=== PATIENT | female | born 1990 | race Caucasian/White ===

== ENCOUNTER 2023-08-07 07:54 | Inpatient (IN) ==
[2023-08-07] MEDS ORDERED: LIDOCAINE 1% LOCAL 20 ML VIAL INFIL PRN (08:14)
[2023-08-07] MEDS ORDERED: LACTATED RINGER'S 1,000 ML IV PRN (08:14)
[2023-08-07] MEDS ORDERED: OXYTOCIN 30 UNITS/NSS 30 UNITS/500 ML BAG IV PRN ×2 (08:14)
[2023-08-07 08:54] LABS: Hematocrit (blood only) 35.6 % (37.0-47.0); Hemoglobin 11.8 g/dl (12.0-16.0); Mean Corpuscular Hemoglobin 29.3 pg (25.0-34.0); Mean Corpuscular Hgb Conc 33.1 g/dL (32.0-36.0); Mean Corpuscular Volume 88.3 fL (80.0-100.0); Mean Platelet Volume 11.9 fL (9.4-12.4); Platelet Count 150 K/uL (130-400); RDW Standard Deviation 44.5 fL (36.4-46.3); Red Blood Count 4.03 M/uL (4.20-5.40); White Blood Count 7.32 K/ul (4.8-10.8)
--- NOTE | 2023-08-07 09:26 | History & Physical Report ---
Date of Service August 07, 2023 Assessment & Plan (1) Encounter for supervision of normal in multigravida: Plan: 32 yo at 40 5/7 wga presents for IOL VSS Fetus cat 1 Labor - will start pit GBS neg epidural prn Admission and Anticipated Discharge Date Admission Date: August 07, 2023 History of Present Illness Chief Complaint: IOL Primary Care Provider: Jennifer Boss MD 32 yo at 40 5/7 wga presents for IOL. +FM; denies regular ctx, LOF, VB. Tez fell out around 4am PNI: PCOS CF carrier hypothyroid G1 2021 G2 current denies hx stis Allergies Allergy/AdvReac Type Severity Reaction Status Date / Time No Known Allergies Allergy Verified 08/06/23 19:31 Home Medications Medication Instructions Recorded Confirmed Type prenat.vits,vandana,alo-cjcv-kkfas 1 tab PO DAILY 12/14/22 08/07/23 History citalopram 20 mg tablet 20 mg PO DAILY #30 tabs 06/13/23 08/07/23 Rx levothyroxine 25 mcg tablet 25 mcg PO DAILY #90 tabs 07/07/23 08/07/23 Rx Patient History Medical History History of chicken pox Family history of melanoma PCOS (polycystic ovarian syndrome) Anxiety Surgical History S/P wisdom tooth extraction H/O colposcopy with cervical biopsy Family History Denies family history of Ovarian cancer Prostate cancer Myocardial infarction Breast cancer Colorectal cancer Social History (Updated 08/07/23 @ 08:17 by Rosy Jurado RN) Smoking Status: Never smoker Second Hand Exposure: No; Do You Dip or Chew Tobacco: No; Hx Alcohol Use: No Hx Substance Use: No Preferred Language: Lithuanian Communication Ability: Effective Floor Representative Required: No Beliefs That Will Affect Care: None marital status: marital status details: Ismael Hurleyhal (32) [phone] Current Living Situation: Family Current Living Situation Comment: Lives at home with , and one daughte. current occupational status: employed current occupation: [employer] director How many Children do You have: 1 Other Information That Helps Us Care for You: No Feels Safe at Home: Yes Safety Concerns: Feels Safe At This Time Childhood Exposure to Second-Hand Smoke: Yes Diet: regular caffeine: Yes Dental Care, Regularly: Yes Seatbelt Use: always Sunscreen Use: Yes Physical Exam Genitourinary: OB Exam Abdomen: + vertex and + estimated weight (7-8) Manual OB Exam: + cervical dilation (3-4), + cervical effacement 50% and + station -2 OB Exam Monitor Tracing: + external FHT monitor used, + external uterine monitor used and + category I Results & Data Vital Signs (Past 12 Hours) Vital Signs Temp Pulse Resp BP 08/07/23 09:07 88 128/86 08/07/23 08:22 97.7 F 108 H 18 123/84 08/07/23 08:13 108 H 18 123/84 Laboratory Results OB Labs: Blood Type B Positive 12/23/22 Antibody Screen NEGATIVE 12/23/22 Hemoglobin 12.4 g/dl (12.0-16.0) 05/11/23 Hematocrit 36.9 % (37.0-47.0) L 05/11/23 Mean Corpuscular Volume 84.8 fL (80.0-100.0) 12/23/22 Platelet Count 228 K/uL (130-400) 12/23/22 Rubella IgG Antibody Immune (Immune) 12/23/22 Rapid Plasma Reagin Nonreactive (Nonreactive) 12/23/22 Hepatitis B Surface Antigen. NON-REACTIVE (NON-REACTIVE) 12/23/22 Hepatitis C Antibody (EIA) NON-REACTIVE (NON-REACTIVE) 12/23/22 HIV (1&2) Ag and Ab Confirmation NON-REACTIVE (NON-REACTIVE) 12/23/22 Glucose 1 Hour 50 gm Load 95 mg/dl (70-130) 05/11/23 Maternal Serum Alpha Fetoprotein 26.8 ng/mL 02/20/23 OB Optional Labs: Chlamydia trachomatis RNA Not Detected (NotDetected) 12/23/22 Neisseria gonorrhoeae RNA Not Detected (NotDetected) 12/23/22 Thyroid Stimulating Hormone (TSH) 1.021 uIu/ml (0.300-4.500) 07/13/23 Alpha Fetoprotein Triple Screen SEE NOTE 02/20/23 Labs Reviewed: cfdna-low risk--mln neg afp - sln Coding Level of Care Code None Diagnoses Encounter for supervision of normal in multigravida Z34.80
--- NOTE | 2023-08-07 12:36 | Labor Progress Brief Note ---
Date of Service August 07, 2023 Subjective Tolerating ctx well, declines epidural prior to AROM. Assessment & Plan (1) Post term over 40 weeks: Plan Continue pitocin, s/p AROM, epidural on request. Anticipate . Admission and Anticipated Discharge Date Admission Date: August 07, 2023 Physical Exam Genitourinary: /-2 AROM copious clear FHT Cat 1 [place] not well traced d/t patient position but appears Q4, which is c/w patient noting ctx Results & Data Vital Signs (Past 12 Hours) Vital Signs Temp Pulse Resp BP 08/07/23 12:20 87 122/78 08/07/23 11:23 80 08/07/23 11:23 98.2 F 80 18 129/81 08/07/23 10:24 85 113/78 08/07/23 09:07 88 128/86 08/07/23 08:22 97.7 F 108 H 18 123/84 08/07/23 08:13 108 H 18 123/84 Coding Level of Care Code None Diagnoses Post term over 40 weeks O48.0
[2023-08-07] MEDS ORDERED: fentaNYL citrate PF 100 MCG/2 ML VIAL ONE (13:01)
[2023-08-07] MEDS ORDERED: BUPIVACAINE 0.25% PF 30 ML VIAL ONE (13:02)
[2023-08-07] MEDS ORDERED: ePHEDrine sulfate 50 MG/ML AMP ONE (13:02)
[2023-08-07] MEDS ORDERED: fentANYL 2 MCG/ML BUPIVacaine 0.125%-NSS 100ML BAG ONE (13:02)
[2023-08-07] MEDS ORDERED: SODIUM CHLORIDE 0.9% PF INJ 10 ML VIAL ONE (13:02)
[2023-08-07] MEDS ORDERED: LIDOCAINE 2%/EPINEPHRINE 1:200,000 20 ML PF ONE (13:02)
[2023-08-07] MEDS ORDERED: BUPIVACAINE 0.25% PF 30 ML VIAL EPI PRN (13:44)
[2023-08-07] MEDS ORDERED: NALBUPHINE HCL 5 MG in SYRINGE 0 ML IV PRN (13:44)
[2023-08-07] MEDS ORDERED: ePHEDrine sulfate 50 MG/ML AMP IV PRN (13:44)
[2023-08-07] MEDS ORDERED: LIDOCAINE 2%/EPINEPHRINE 1:200,000 20 ML PF EPI STA (13:44)
[2023-08-07] MEDS ORDERED: NALOXONE HCL 1 MG in SODIUM CHLORIDE 0.9% 1,000 ML IV PRN (13:44)
[2023-08-07] MEDS ORDERED: SODIUM CHLORIDE 0.9% PF INJ 10 ML VIAL EPI PRN (13:44)
[2023-08-07] MEDS ORDERED: fentANYL 2 MCG/ML BUPIVacaine 0.125%-NSS 100ML BAG EPI PRN (13:44)
[2023-08-07] MEDS ORDERED: diphenhydrAMINE 50 MG/ML VIAL IV PRN (13:44)
[2023-08-07] MEDS ORDERED: fentaNYL citrate PF 100 MCG/2 ML VIAL EPI STA (13:44)
[2023-08-07] MEDS ORDERED: LIDOCAINE 2% MPF LOCAL 5 ML VIAL EPI PRN (13:44)
[2023-08-07] MEDS ORDERED: NALOXONE HCL 0.4 MG/1 ML VIAL/CARP IV PRN (13:44)
[2023-08-07] MEDS ORDERED: SODIUM CHLORIDE 0.9% PF INJ 10 ML VIAL EPI STA (13:44)
[2023-08-07] MEDS ORDERED: fentaNYL citrate PF 100 MCG/2 ML VIAL EPI PRN (13:44)
[2023-08-07] MEDS ORDERED: ROPIVACAINE 0.5% PF 5 MG/ML 20 ML VIAL EPI PRN (13:44)
[2023-08-07] MEDS ORDERED: BUPIVACAINE 0.25% PF 30 ML VIAL EPI STA (13:44)
--- NOTE | 2023-08-07 13:45 | Anesthesiology Consultation ---
Date of Service August 07, 2023 Assessment & Plan Chart Review Chart Review: Acceptable Risk for Labor Epidural Consults Requested none History Height/Weight Height: 5 ft 9 in Weight: 113.398 kg Allergies Allergy/AdvReac Type Severity Reaction Status Date / Time No Known Allergies Allergy Verified 08/06/23 19:31 Medications Home Medications Medication Instructions Recorded Confirmed Last Taken prenat.vits,vandana,rpr-fcmv-sasld 1 tab PO DAILY 12/14/22 08/07/23 08/07/23 citalopram 20 mg tablet 20 mg PO DAILY #30 tabs 06/13/23 08/07/23 08/07/23 levothyroxine 25 mcg tablet 25 mcg PO DAILY #90 tabs 07/07/23 08/07/23 08/07/23 Active Medications Generic Name Dose Route Start Last Admin Trade Name Freq PRN Reason Stop Dose Admin Oxytocin 30 units in 500 mls @ 10 mls/hr 08/07/23 08:14 08/07/23 11:20 Pitocin 30 Units/Nss IV 08/09/23 08:13 0.6 units/hr .Q24H PRN 10 mls/hr Labor Induction/Augmentation Titration Protocol 0.6 UNITS/HR Lactated Ringer's 1,000 mls @ 125 mls/hr 08/07/23 08:14 08/07/23 08:28 Lr IV 08/09/23 08:13 125 mls/hr .Q8H PRN Administration L&D Protocol Protocol Past Medical History Medical History History of chicken pox Family history of melanoma PCOS (polycystic ovarian syndrome) Anxiety Past Family History Family History Denies family history of Ovarian cancer Prostate cancer Myocardial infarction Breast cancer Colorectal cancer Past Surgical History Surgical History S/P wisdom tooth extraction H/O colposcopy with cervical biopsy Social History Smoking Status: Never smoker Do You Dip or Chew Tobacco: No Hx Alcohol Use: No Alcohol type: wine alcohol intake frequency: a few times a month Hx Substance Use: No Physical Exam Vital Signs Last Vital Signs Temp 36.8 C 08/07/23 11:23 Pulse 87 08/07/23 12:20 Resp 18 08/07/23 11:23 BP 122/78 08/07/23 12:20 Testing Laboratory Results 08/07/23 08:33 Blood Type B Positive 08/07/23 08:33 Antibody Screen NEGATIVE 08/07/23 08:33
--- NOTE | 2023-08-07 18:06 | Delivery Summary ---
Vaginal Delivery Summary Date of Service August 07, 2023 Vaginal Delivery Summary DIAGNOSES: 1. Mejia intrauterine at 40w5d gestation. 2. Spontaneous onset of labor. 3. Group B Streptococcus Neg. PROCEDURE: Spontaneous vaginal delivery and repair of second degree laceration. SURGEON: Alesha Salinas MD. ABSTRACT MAKER: None. ESTIMATED BLOOD LOSS: 300 mL. COMPLICATIONS: None. PLACENTA: Spontaneous and intact with a 3-vessel cord. DISPOSITION: Stable to labor and delivery. DESCRIPTION: The patient pushed well and brought the head to in DOA position. The infant's head was allowed to deliver with contraction force and no further active pushing, with the perineum protected during this time. There was no nuchal cord. The left shoulder was anterior. The shoulders and body delivered without any difficulty, and the infant was placed on the maternal abdomen. It was vigorous and moving all extremities, and making respiratory efforts. The cord was doubly clamped by the MD and then cut by the FOB. The placenta delivered spontaneously and was noted to be intact and with a 3VC. The cervix, vagina and perineum were examined and were found to have a second degree laceration which was repaired with 3-0 vicryl suture.. The fundus was firm and lochia minimal immediately after delivery. [facility] Vaginal Delivery Charge Vaginal Delivery Codes: 63401 global code for the antepartum, delivery, and post-
[2023-08-07] MEDS ORDERED: HYDROCORTISONE ACETATE 25 MG SUPP PR PRN (19:02)
[2023-08-07] MEDS ORDERED: bisacodyL 10 MG SUPP PR PRN (19:02)
[2023-08-07] MEDS ORDERED: BENZOCAINE 20% SPRY 85 APPLN/85 GM CAN EXT PRN (19:02)
[2023-08-07] MEDS ORDERED: DIPHTHER/TETAN/PERTUS Vaccine (Tdap, Adol/Adult) 0.5mL IM ONE (19:02)
[2023-08-07] MEDS ORDERED: DOCUSATE SODIUM 100 MG CAP PO ONE (19:12)
[2023-08-07] MEDS: IBUPROFEN 600 MG TAB PO PRN ×2 (19:13→23:11)
--- NOTE | 2023-08-07 19:29 | Anesthesia Procedure Note ---
Date of Service August 07, 2023 Anesthesia Post Epidural Note Vital Signs Vital Signs: Temp Pulse Resp BP Pulse Ox O2 Del Method 36.5 C 81 18 117/73 99 Room Air 08/07/23 19:00 08/07/23 19:16 08/07/23 19:00 08/07/23 19:16 08/07/23 18:00 08/07/23 19:00 Pain Intensity Bilateral Abdomen: Pain Intensity: 4 Notes Mental Status: alert / awake / arousable and participated in evaluation Nausea / Vomiting: adequately controlled Pain: adequately controlled Airway Patency, RR, SpO2: stable & adequate BP & HR: stable & adequate Hydration State: stable & adequate Neuraxial Anesthesia: was administered and sensory block is resolving Anesthetic Complications: no major complications apparent and Pt Satisfied with anesthetic care Epidural: Removed without complications and With tip intact
[2023-08-07] MEDS: DOCUSATE SODIUM 100 MG CAP PO SCH (20:42)
[2023-08-07] MEDS: ACETAMINOPHEN 325 MG TAB PO PRN (21:05)
[2023-08-08] MEDS: IBUPROFEN 600 MG TAB PO PRN ×5 (03:11→20:28)
[2023-08-08] MEDS: ACETAMINOPHEN 325 MG TAB PO PRN (03:11)
[2023-08-08] MEDS: LEVOTHYROXINE SODIUM 25 MCG TABLET PO SCH (06:51)
[2023-08-08 07:15] LABS: Hemoglobin 11.4 g/dl (12.0-16.0); Mean Corpuscular Hemoglobin 29.4 pg (25.0-34.0); Mean Corpuscular Hgb Conc 33.5 g/dL (32.0-36.0); Mean Corpuscular Volume 87.6 fL (80.0-100.0); Mean Platelet Volume 12.4 fL (9.4-12.4); Platelet Count 142 K/uL (130-400); RDW Coefficient of Variation 14.1 % (11.5-14.5); RDW Standard Deviation 44.5 fL (36.4-46.3); Red Blood Count 3.88 M/uL (4.20-5.40); White Blood Count 7.24 K/ul (4.8-10.8)
--- NOTE | 2023-08-08 07:17 | Obstetrical Progress Note ---
Date of Service <Nicole Sanches DO - Last Filed: 08/08/23 07:24> August 08, 2023 Assessment & Plan <Nicole Sanches DO - Last Filed: 08/08/23 07:24> (1) care following vaginal delivery: Plan Overall feels well today. Eating well, voiding well, ambulating well. Pain controlled with ibuprofen and tylenol but has worsened some with crampy pain, so may use some percocet today to see if it helps. Routine care; OOB, ambulation, Continue regular diet. Anticipate discharge 24-48 hours after , likely tomorrow am. After discharge will have 6 week follow-up with Dr. Salinas. <Alesha Salinas MD - Last Filed: 08/08/23 07:27> (1) care following vaginal delivery: Subjective <Nicole Sanches DO - Last Filed: 08/08/23 07:24> Pt is a 32 y/o female who is PPD#1 following at 40 weeks. Pt states that she is overall feeling well this morning, but states she definitely is more crampy this time compared to her last delivery. She has been ambulating, voiding, and tolerating intake appropriately. She is breast feeding and it has been going well so far, just notes that baby seems very sleepy. Bleeding is improving. No questions or complaints at this time. She states she thinks she wants to stay today to work om feeding and pain control as she has been going tylenol and ibuprofen and now may need percocet for cramping pain. Constitutional: no fever, no chills or no sweats Respiratory: no dyspnea Cardiovascular: no chest pain or no palpitations Breast: no breast pain Neurologic: no headache(s) no changes in vision, Physical Exam <Nicole Sanches DO - Last Filed: 08/08/23 07:24> General: Alert, oriented. No acute distress. Cardiac: Regular rate and rhythm, no murmurs, rubs, or gallops. Respiratory: Clear to auscultation bilaterally, no wheezes/rales/rhonchi. No increased work of breathing. Symmetrical chest rise. No respiratory distress. Abdomen: Soft, nontender, nondistended. Bowel sounds present. Uterus: Uterine fundus firm, palpable below the umbilicus. Lower extremities: No lower extremity edema or swelling. No deep calf pain. Results & Data <Nicole Sanches DO - Last Filed: 08/08/23 07:24> Vital Signs (Past 12 Hours) Vital Signs Temp Pulse Pulse Resp BP BP Pulse Ox 08/08/23 03:05 36.3 C L 85 18 101/68 98 08/07/23 22:34 73 118/71 08/07/23 21:04 36.4 C L 93 H 18 104/66 97 08/07/23 20:01 84 134/62 08/07/23 20:00 18 08/07/23 19:46 96 H 134/81 08/07/23 19:31 96 H 145/80 H 08/07/23 19:30 18 O2 Del Method 08/08/23 03:05 Room Air 08/07/23 22:34 08/07/23 21:04 Room Air 08/07/23 20:01 08/07/23 20:00 08/07/23 19:46 08/07/23 19:31 08/07/23 19:30 Supervising Physician <Alesha Salinas MD - Last Filed: 08/08/23 07:27> Co-Signing Physician Notes Resident Physician Supervision Note: I interviewed and examined the patient. Discussed with Dr. Sanches and agree with findings and plan as documented in the note. Any exceptions or clarifications are listed here: [ ] Documented By: Alesha Salinas MD, FACOG Resident Activity Tracking <Nicole Sanches DO - Last Filed: 08/08/23 07:24> Resident Involvement: Resident Care Provided Care Provided: OB Delivery
[2023-08-08] MEDS: CITALOPRAM 20 MG TAB PO SCH (07:38)
[2023-08-08] MEDS: DOCUSATE SODIUM 100 MG CAP PO SCH ×2 (07:38→20:28)
[2023-08-08] MEDS: oxyCODONE/ACETAMINOPHEN 5mg/325mg TAB PO PRN ×4 (07:38→20:28)
[2023-08-08] MEDS: PRENATAL VITAMIN 1 TAB PO SCH (08:42)
[2023-08-08] MEDS ORDERED: bisacodyL 5 MG TABEC PO SCH (20:00)
[2023-08-09] MEDS: ACETAMINOPHEN 325 MG TAB PO PRN ×2 (00:24→06:50)
[2023-08-09] MEDS: IBUPROFEN 600 MG TAB PO PRN ×2 (00:24→06:49)
[2023-08-09] MEDS: LEVOTHYROXINE SODIUM 25 MCG TABLET PO SCH (06:17)
[2023-08-09 06:20] LABS: Hematocrit (blood only) 31.8 % (37.0-47.0); Hemoglobin 10.2 g/dl (12.0-16.0)
--- NOTE | 2023-08-09 06:23 | Obstetrical Progress Note ---
Date of Service <Nicole Sanches DO - Last Filed: 08/09/23 06:32> August 09, 2023 Assessment & Plan <Nicole Sanches DO - Last Filed: 08/09/23 06:32> (1) care following vaginal delivery: Plan Pt continuing to do well with less bleeding noted since evaluated yesterday. Now having some issues with constipation Pain controlled with ibuprofen and tylenol with occasional percocet Routine care; OOB, ambulation, Continue regular diet. Encouraged pt to save percocet for breakthrough pain to reduce the risk of further constipation and may need to add laxative to soften stools to help resolve constipation Anticipate discharge 24-48 hours after , today. After discharge will have 6 week follow-up with Dr. Salinas. <Lani Mann MD, FACOG - Last Filed: 08/09/23 07:14> (1) care following vaginal delivery: Subjective <Nicole Sanches DO - Last Filed: 08/09/23 06:32> Pt is a 32 y/o female who is PPD#2 following at 40 weeks. Pt states that she is doing okay today. She states she feels really constipated and got a suppository yesterday but that it helped only a little and she still feels pretty backed up. She states her lochia has improved and just notes she felt one gush yesterday after she breastfed and then stood up but has had pretty minor bleeding otherwise. She states her pain is about the same as yesterday, maybe a smidge better, but she hesitates to take the percocet since she is already pretty constipated. Tolerating oral intake and voiding well otherwise. Breast feeding is going okay. Constitutional: no fever, no chills or no sweats Respiratory: no dyspnea Cardiovascular: no chest pain or no palpitations Genitourinary (female): no dysuria Neurologic: no headache(s) no changes in vision, Physical Exam <Nicole Sanches DO - Last Filed: 08/09/23 06:32> General: Alert, oriented. No acute distress. Cardiac: Regular rate and rhythm, no murmurs, rubs, or gallops. Respiratory: Clear to auscultation bilaterally, no wheezes/rales/rhonchi. No increased work of breathing. Symmetrical chest rise. No respiratory distress. Abdomen: Soft, nontender, nondistended. Bowel sounds present. Uterus: Uterine fundus firm, palpable below the umbilicus. Lower extremities: No lower extremity edema or swelling. No deep calf pain. Results & Data <Nicole Sanches DO - Last Filed: 08/09/23 06:32> Vital Signs (Past 12 Hours) Vital Signs Temp Pulse Resp BP 08/09/23 00:15 36.5 C 88 18 119/75 08/08/23 20:17 36.8 C 83 18 107/70 Supervising Physician <Lani Mann MD, FACOG - Last Filed: 08/09/23 07:14> Co-Signing Physician Notes Resident Physician Supervision Note: I interviewed and examined the patient. Discussed with Dr. Sanches and agree with findings and plan as documented in the note. Any exceptions or clarifications are listed here: Doing well. Dealing with constipation that when she bears down makes her stitches hurt. Discussed may need more laxative and suggested mag citrate. Discussed having first BM in tub with warm water. Patient notes she is ready for d/c. INstructions given. Documented By: Lani Mann MD, FACOG Resident Activity Tracking <Nicole Sanches DO - Last Filed: 08/09/23 06:32> Resident Involvement: Resident Care Provided Care Provided: OB Delivery
[2023-08-09] MEDS: CITALOPRAM 20 MG TAB PO SCH (09:07)
[2023-08-09] MEDS: PRENATAL VITAMIN 1 TAB PO SCH (09:07)
[2023-08-09] MEDS: DOCUSATE SODIUM 100 MG CAP PO SCH (09:08)
== END 2023-08-09 11:40 | disposition home or self-care (01) | DRG 807 ==
LOC: 4S1 07:54 → 4E2 20:30

== ENCOUNTER 2023-08-12 19:44 | Inpatient (IN) ==
[2023-08-12] MEDS ORDERED: ACETAMINOPHEN 1,000 MG/100 ML VIAL IV STA (20:15)
[2023-08-12] MEDS ORDERED: SODIUM CHLORIDE 0.9% 500 ML IV ONE (20:21)
--- NOTE | 2023-08-12 20:27 | Emergency Department Note ---
Impression & Plan fever, Acute endometritis ED Provider Note NAME: KP CASON AGE: 32 SEX: F : 1990 ARRIVES VIA: Walk-In INFORMANT: Patient, ED PROVIDER(S): Hunter Shetty DO CHIEF COMPLAINT: Fever HPI: The patient is a 32-year-old female who presented to the emergency department for an evaluation of fever. She is 5 days status post vaginal delivery. The patient has been noticing some lower abdominal tenderness. She started having fever and chills. She was told to go to the emergency department by her covering [facility] [employer] doctor. She states that when she had her delivery 5 days ago it was uncomplicated. She did have a tear in her perineum otherwise she had no problems with her blood pressure. She was recently on antibiotic for sinus infection. ROS: See above HPI for pertinent positives & negatives. A total of 10 systems reviewed and were otherwise negative. PAST MEDICAL HISTORY: See Below PAST SURGICAL HISTORY: See Below FAMILY HISTORY: See Below SOCIAL HISTORY: See Below HOME MEDICATIONS: See Below ALLERGIES: See Below VITALS: See Below PHYSICAL EXAMINATION: GENERAL: Patient is awake alert in no acute distress patient is resting comfortably and showing no signs of anxiety EYES: The conjunctivae are clear. The pupils are round and reactive. EARS, NOSE, MOUTH AND THROAT: The nose is without any evidence of any deformity. Mucous membranes are moist. Tongue is midline. NECK: The neck is nontender and supple. RESPIRATORY: Normal respiratory effort is noted there is no evidence of wheezing rhonchi or rales CARDIOVASCULAR: Tachycardic and irregular heart sounds were noted to auscultation. There is no definite murmur. GASTROINTESTINAL: the abdomen was mildly distended. There is suprapubic tenderness to palpation which was moderate. MUSCULOSKELETAL/EXTREMITIES: There is no evidence of gross deformity full range of motion is noted in the hips and shoulders. SKIN: There is no obvious evidence of any rash. Pedal edema was noted bilaterally NEUROLOGIC: Patient is awake alert and oriented x3 MEDICAL DECISION MAKING: The patient is a 32-year-old female who presented to the emergency department for fever. The patient is 5 days from a vaginal delivery. The patient's urinalysis was not overwhelmingly consistent with urine infection. CT of the chest as well as chest x-ray does not appear to show signs of infiltrate. The patient was treated with IV fluids Tylenol as well as IV antibiotics for presumed endometritis. I discussed patient's condition with the on-call [facility] [employer] [employer] doctor. They have agreed to evaluate the patient in the emergency department. After their evaluation they felt the patient would be a better candidate for observation in labor and delivery for continued IV antibiotics as well as monitoring for the patient's improvement. The patient was agreeable with this plan. Triage Nursing notes reviewed. Prior medical records reviewed Vital Signs: reviewed and remarkable for fever and tachycardia. Differential diagnosis: Viral syndrome, otitis, pharyngitis, pneumonia, influenza, meningitis, urinary tract infection, sepsis, bacteremia, as well as other pathologies. ER treatment provided: See below Diagnostics interpreted by me: ECG: none Cardiac Monitoring: An order was placed for continuous cardiac monitoring. The monitor shows a rate of 108 bpm with sinus tachycardia. Laboratory studies: As stated above and show below. Imaging studies: See below. Radiographic imaging was reviewed by myself Consultation(s): I discussed this case with Dr. Giles who is on-call for the patient's primary [facility] [employer] [employer] group. She has recommended ampicillin gentamicin and clindamycin at this time given the patient presentation and possibility for endometritis. Past Med/Surg History Medical History History of chicken pox Family history of melanoma PCOS (polycystic ovarian syndrome) Anxiety Surgical History S/P wisdom tooth extraction H/O colposcopy with cervical biopsy 2021 Family History Denies family history of Ovarian cancer Prostate cancer Myocardial infarction Breast cancer Colorectal cancer Social History Smoking Status: Never smoker Second Hand Exposure: No; Do You Dip or Chew Tobacco: No; Hx Alcohol Use: No Hx Substance Use: No Preferred Language: Haitian Communication Ability: Effective Multimedia Manager Required: No Beliefs That Will Affect Care: None marital status: marital status details: Ismael Morillo (32) [phone] Current Living Situation: Family Current Living Situation Comment: Lives at home with , and one daughte. 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 How many Children do You have: 1 Feels Safe at Home: Yes Childhood Exposure to Second-Hand Smoke: Yes Diet: regular caffeine: Yes Dental Care, Regularly: Yes Seatbelt Use: always Sunscreen Use: Yes Allergies Allergies Allergy/AdvReac Type Severity Reaction Status Date / Time No Known Allergies Allergy Verified 08/12/23 20:27 Home Meds Home Medications Medication Instructions Recorded Confirmed prenat.vits,vandana,[id number] 1 tab PO DAILY 12/14/22 08/12/23 acetaminophen 325 mg capsule 325 mg PO QID PRN Pain 08/12/23 08/12/23 (Tylenol) ibuprofen 200 mg tablet 200 mg PO Q6H PRN Pain 08/12/23 08/12/23 Previous Rx's Medication Instructions Recorded citalopram 20 mg tablet 20 mg PO DAILY #30 tabs 06/13/23 levothyroxine 25 mcg tablet 25 mcg PO DAILY #90 tabs 07/07/23 Results & Data (ED) Vital Signs Vital Signs - 24 hr 08/12/23 19:56 08/12/23 20:15 08/12/23 20:30 Temperature 38.6 C H Temperature Source Temporal Artery Scan Pulse Rate 124 H 123 H 104 H Pulse Rate [Apical] Pulse Rhythm Regular Pulse Rhythm [Apical] Pulse Strength [Apical] Respiratory Rate 20 20 Respiratory Effort / Characteristics Non-Labored Spontaneous Respiratory Depth Normal Respiratory Pattern Regular Blood Pressure 148/92 H Blood Pressure [Right Arm] Blood Pressure Mean 110 Blood Pressure Mean [Right Arm] Blood Pressure Position Sitting Blood Pressure Position [Right Arm] Pulse Oximetry 97 Oxygen Delivery Method Room Air Sepsis Recent Fever Within 48 Hours Yes Sepsis New/Unexplained Change in Mental Status No Sepsis Action Taken by Nursing No Action Required 08/12/23 21:05 08/12/23 22:25 Temperature 37.0 C Temperature Source Oral Pulse Rate Pulse Rate [Apical] 128 H 107 H Pulse Rhythm Pulse Rhythm [Apical] Regular Regular Pulse Strength [Apical] Normal Normal Respiratory Rate 19 17 Respiratory Effort / Characteristics Non-Labored Spontaneous Non-Labored Spontaneous Respiratory Depth Normal Normal Respiratory Pattern Regular Regular Blood Pressure Blood Pressure [Right Arm] 163/99 H 122/78 Blood Pressure Mean Blood Pressure Mean [Right Arm] 120 92 Blood Pressure Position Blood Pressure Position [Right Arm] Semi-fowlers Semi-fowlers Pulse Oximetry 96 96 Oxygen Delivery Method Room Air Room Air Sepsis Recent Fever Within 48 Hours Sepsis New/Unexplained Change in Mental Status Sepsis Action Taken by [facility] Medications Current Medication List: was personally reviewed by me Laboratory Data Attestation: I reviewed the patient's lab results. 08/12/23 20:35 08/12/23 20:35 Lab Results 08/12/23 08/12/23 Range/Units 20:35 21:45 WBC 9.09 (4.8-10.8) K/ul RBC 3.72 L (4.20-5.40) M/uL Hgb 11.2 L (12.0-16.0) g/dl Hct 33.1 L (37.0-47.0) % MCV 89.0 (80.0-100.0) fL MCH 30.1 (25.0-34.0) pg MCHC 33.8 (32.0-36.0) g/dL RDW Std Deviation 44.7 (36.4-46.3) fL RDW Coeff of Stephanie 13.9 (11.5-14.5) % Plt Count 152 (130-400) K/uL MPV 11.5 (9.4-12.4) fL Immature Gran % (Auto) 0.2 % Neut % (Auto) 90.3 % Lymph % (Auto) 5.9 % Bell % (Auto) 2.3 % Eos % (Auto) 1.2 % Baso % (Auto) 0.1 % Neut # (Auto) 8.20 H (1.40-6.50) K/uL Lymph # (Auto) 0.54 L (1.20-3.40) K/uL Bell # (Auto) 0.21 (0.11-0.59) K/uL Eos # (Auto) 0.11 (0.00-0.50) K/uL Baso # (Auto) 0.01 (0.00-0.20) K/uL Immature Gran # (Auto) 0.02 (0.01-0.20) K/uL Polychromasia 1+ Sodium 135 L (136-145) mmol/L Potassium 3.7 (3.5-5.1) mmol/L Chloride 102 (98-107) mmol/L Carbon Dioxide 25 (21-32) mmol/L Anion Gap 8 (3-11) BUN 10 (6-23) mg/dl Creatinine 0.63 (0.6-1.2) mg/dl Est Cr Clr Drug Dosing 171.7 ml/min Est GFR ( Amer) 136.6 ml/min Est GFR (Non-Af Amer) 117.9 ml/min BUN/Creatinine Ratio 15.9 (10-20) Glucose 93 (70-99(Fasting)) mg/dl Lactate 1.4 (0.4-2.0) mmol/L Calcium 8.8 (8.6-10.3) mg/dl Magnesium 1.5 L (1.7-2.4) mg/dl Total Bilirubin 0.3 (0.2-1.0) mg/dl Direct Bilirubin 0.0 (0-0.2) mg/dl AST 25 (13-39) U/L ALT 31 (7-52) U/L Alkaline Phosphatase 87 (34-104) U/L Troponin I High Sens 7.8 (0-14) pg/ml Total Protein 6.3 (6.0-8.3) gm/dl Albumin 3.3 L (3.4-5.0) gm/dl Procalcitonin < 0.05 (0-0.5) ng/ml Urine Color Yellow Urine Appearance Clear (Clear) Urine pH 6.5 (4.5-7.5) Ur Specific [place] 1.015 (1.000-1.030) Urine Protein Negative (Negative) Urine Glucose (UA) Negative (Negative) Urine Ketones Negative (Negative) Urine Blood 3+ H (Negative) Urine Nitrite Negative (Negative) Urine Bilirubin Negative (Negative) Urine Urobilinogen Negative (Negative) Ur Leukocyte Esterase 1+ H (Negative) Urine RBC 5-10 H (0-4) /hpf Urine WBC 0-5 (0-5) /hpf Ur Epithelial Cells 0-5 (0-5) /lpf Urine Bacteria Negative (Negative) Hyaline Casts 0-5 (0-5) /lpf Adenovirus (PCR) Not Detected (NotDetected) B. pertussis DNA (PCR) Not Detected (NotDetected) B.parapertussis DNA PCR Not Detected (NotDetected) C. pneumoniae DNA (PCR) Not Detected (NotDetected) Coronavirus OC43 (PCR) Not Detected (NotDetected) Coronavirus HKU1 (PCR) Not Detected (NotDetected) Coronavirus 229E (PCR) Not Detected (NotDetected) SARS-CoV-2 (PCR) Not Detected (NotDetected) Coronavirus NL63 (PCR) Not Detected (NotDetected) Human Metapneumovir PCR Not Detected (NotDetected) Influenza Type A (PCR) Not Detected (NotDetected) Influenza Type B (PCR) Not Detected (NotDetected) M. pneumoniae (PCR) Not Detected (NotDetected) Parainfluenza 1 (PCR) Not Detected (NotDetected) Parainfluenza 2 (PCR) Not Detected (NotDetected) Parainfluenza 3 (PCR) Not Detected (NotDetected) Parainfluenza 4 (PCR) Not Detected (NotDetected) RSV (PCR) Not Detected (NotDetected) Entero/Rhino (PCR) Not Detected (NotDetected) Administered Medications Discontinued Medications Acetaminophen (Ofirmev) 1,000 mg in 100 mls @ 400 mls/hr IV NOW STA Stop: 08/12/23 20:29 Last Infusion: 08/12/23 21:14 Dose: Infused Documented By: Admin: 08/12/23 20:42 Dose: 400 mls/hr Documented By: ABIDA Sodium Chloride (Nss) 500 mls @ 999 mls/hr IV .Q31M ONE Stop: 08/12/23 20:51 Last Infusion: 08/12/23 21:14 Dose: Infused Documented By: Admin: 08/12/23 20:42 Dose: 999 mls/hr Documented By: BAIDA Ampicillin Sodium 2,000 mg/ (Sodium Chloride) 100 mls @ 200 mls/hr IV ONE ONE Stop: 08/12/23 21:11 Last Infusion: 08/12/23 22:46 Dose: Infused Documented By: Admin: 08/12/23 22:14 Dose: 200 mls/hr Documented By: ABIDA Gentamicin Sulfate 120 mg/ (Dextrose) 103 mls @ 100 mls/hr IV ONCE STA Stop: 08/12/23 21:42 Last Admin: 08/12/23 22:24 Dose: 100 mls/hr Documented By: ABIDA Clindamycin Phosphate (Cleocin/D5w) 900 mg in 50 mls @ 100 mls/hr IV NOW ONE Stop: 08/12/23 21:10 Last Infusion: 08/12/23 22:46 Dose: Infused Documented By: Admin: 08/12/23 22:14 Dose: 100 mls/hr Documented By: ABIDA Ioversol (Optiray 320 125ml) 116 ml IV ONCE ONE Stop: 08/12/23 21:51 Last Admin: 08/12/23 21:51 Dose: 116 ml Documented By: FLOWER Imaging Data Attestation: I personally reviewed and interpreted this imaging study as follows: My Impression: CT of the abdomen and pelvis was obtained in the emergency department. My interpretation is no free air, enlarged uterus was noted, final report below. 1 view chest x-ray was obtained in the emergency department. My interpretation is no free air or definite infiltrate, final report below. CT of the chest was obtained in the emergency department. My interpretation is no free air or definite infiltrate, final report below Radiologist's Impression: Abdomen/Pelvis CT 08/12/23 20:41 Exam(s): CT ABDOMEN + PELVIS With Contrast IV Amt: 116 ML EXAM: CT Abdomen and Pelvis With Intravenous Contrast CLINICAL HISTORY: Reason for exam: fever. TECHNIQUE: Axial computed tomography images of the abdomen and pelvis with intravenous contrast. Automated exposure control was utilized for the study. A dose lowering technique was utilized adhering to the principles of ALARA. CONTRAST: Patient received 116 ML of IV contrast COMPARISON: No relevant prior studies available. FINDINGS: Lung bases: Unremarkable. No mass. No consolidation. ABDOMEN: Liver: Unremarkable. No mass. Gallbladder and bile ducts: Unremarkable. No calcified stones. No ductal dilation. Pancreas: Unremarkable. No mass. No ductal dilation. Spleen: Unremarkable. No splenomegaly. Adrenals: Unremarkable. No mass. Kidneys and ureters: Unremarkable. No solid mass. No hydronephrosis. Stomach and bowel: Unremarkable. No obstruction. No mucosal thickening. PELVIS: Appendix: No findings to suggest acute appendicitis. Bladder: Unremarkable. No mass. Reproductive: Diffusely enlarged uterus. Question if patient is recently . ABDOMEN and PELVIS: Intraperitoneal space: Unremarkable. No free air. No significant fluid collection. Bones/joints: No acute fracture. No dislocation. Soft tissues: Unremarkable. Vasculature: Unremarkable. No abdominal aortic aneurysm. Lymph nodes: Unremarkable. No enlarged lymph nodes. IMPRESSION: No acute abdominal or pelvic process. Diffusely enlarged uterus. Question if patient is recently . Electronically signed by: Amos Duncan M.D. 08/12/23 22:55 PM Chest CTA 08/12/23 20:41 Exam(s): CTA CHEST IV Amt: 116 ML EXAM: CT Angiography Chest With Intravenous Contrast CLINICAL HISTORY: Reason for exam: PE. TECHNIQUE: Axial computed tomographic angiography images of the chest with intravenous contrast. Automated exposure control was utilized for the study. A dose lowering technique was utilized adhering to the principles of ALARA. MIP reconstructed images were created and reviewed. COMPARISON: No relevant prior studies available. FINDINGS: Pulmonary arteries: Unremarkable. No CT evidence of pulmonary embolism. Aorta: No acute findings. No thoracic aortic aneurysm. Lungs: Unremarkable. No mass. No consolidation. Pleural space: Unremarkable. No significant effusion. No pneumothorax. Heart: Unremarkable. No cardiomegaly. No significant pericardial effusion. No evidence of RV dysfunction. Bones/joints: No acute fracture. No dislocation. Soft tissues: Unremarkable. Lymph nodes: Unremarkable. No enlarged lymph nodes. IMPRESSION: No CT evidence of pulmonary embolism. Electronically signed by: Amos Duncan M.D. 08/12/23 22:51 PM Discharge Plan Visit Data Chief Complaint: Fever Stated Complaint: 5 DAYS POSTPARDOM, FEVER/CHILLS, SHAKING ED Provider: Hunter Shetty Discharge Problem: fever, Acute endometritis Patient Disposition: Being Evaluated by Surgeon Forms Stand Alone Forms: [facility] Prescriptions Prescriptions: No Action levothyroxine 25 mcg tablet 25 mcg PO DAILY Qty: 90 3RF prenat.vits,vandana,[id number]-[id number]-[id number] Tablet 1 tab PO DAILY citalopram 20 mg tablet 20 mg PO DAILY Qty: 30 2RF ibuprofen 200 mg Tablet 200 mg PO Q6H PRN (Reason: Pain) acetaminophen [Tylenol] 325 mg Capsule 325 mg PO QID PRN (Reason: Pain) Referrals Referrals: Jennifer Boss MD [Primary Care Provider] -
[2023-08-12] MEDS ORDERED: GENTAMICIN SULFATE 120 MG in DEXTROSE 5% 100 ML IV STA (20:41)
[2023-08-12] MEDS ORDERED: GENTAMICIN CONSULT ACTIVE PRN (20:41)
[2023-08-12] MEDS ORDERED: CLINDAMYCIN/D5W 900 MG/50 ML BAG IV ONE (20:41)
[2023-08-12] MEDS ORDERED: AMPICILLIN 2,000 MG in SODIUM CHLOR 0.9% MINI-B 100 ML IV ONE (20:42)
[2023-08-12 21:05] LABS: Hematocrit (blood only) 33.1 % (37.0-47.0); Hemoglobin 11.2 g/dl (12.0-16.0); Mean Corpuscular Hemoglobin 30.1 pg (25.0-34.0); Mean Corpuscular Hgb Conc 33.8 g/dL (32.0-36.0); Mean Platelet Volume 11.5 fL (9.4-12.4); Platelet Count 152 K/uL (130-400); RDW Coefficient of Variation 13.9 % (11.5-14.5); RDW Standard Deviation 44.7 fL (36.4-46.3); Red Blood Count 3.72 M/uL (4.20-5.40); White Blood Count 9.09 K/ul (4.8-10.8)
[2023-08-12 21:24] LABS: Albumin Level 3.3 gm/dl (3.4-5.0); BUN Creatinine Ratio 15.9 (10-20); Bilirubin,Total 0.3 mg/dl (0.2-1.0); Calcium 8.8 mg/dl (8.6-10.3); Creatinine Clr Calc Pharmacy 171.7 ml/min; Est GFR (African American) 136.6 ml/min; Est GFR (Non-African American) 117.9 ml/min; Magnesium 1.5 mg/dl (1.7-2.4); Potassium 3.7 mmol/L (3.5-5.1); Total Protein 6.3 gm/dl (6.0-8.3)
[2023-08-12 21:30] LABS: Troponin I High Sensitivity 7.8 pg/ml (0-14)
[2023-08-12 21:37] LABS: Basophils # (auto) 0.01 K/uL (0.00-0.20); Basophils % (auto) 0.1 %; Eosinophils # (auto) 0.11 K/uL (0.00-0.50); Eosinophils % (auto) 1.2 %; Immature Granulocytes # (auto) 0.02 K/uL (0.01-0.20); Immature Granulocytes % (auto) 0.2 %; Lymphocytes # (auto) 0.54 K/uL (1.20-3.40); Lymphocytes % (auto) 5.9 %; Monocytes # (auto) 0.21 K/uL (0.11-0.59); Monocytes % (auto) 2.3 %; Neutrophils % (auto) 90.3 %; Polychromasia 1+
[2023-08-12 21:47] LABS: Adenovirus PCR Not Detected (NotDetected); Bordetella parapertussis PCR Not Detected (NotDetected); Bordetella pertussis PCR Not Detected (NotDetected); Chlamydia pneumoniae PCR Not Detected (NotDetected); Coronavirus 229E PCR Not Detected (NotDetected); Coronavirus CoV-2 (COVID19)PCR Not Detected (NotDetected); Coronavirus HKU1 PCR Not Detected (NotDetected); Coronavirus NL63 PCR Not Detected (NotDetected); Coronavirus OC43PCR Not Detected (NotDetected); Human Metapneumovirus PCR Not Detected (NotDetected); Influenza A PCR Not Detected (NotDetected); Influenza B PCR Not Detected (NotDetected); Mycoplasma pneumoniae PCR Not Detected (NotDetected); Parainfluenza Virus 1 PCR Not Detected (NotDetected); Parainfluenza Virus 2 PCR Not Detected (NotDetected); Parainfluenza Virus 3 PCR Not Detected (NotDetected); Parainfluenza Virus 4 PCR Not Detected (NotDetected); Respiratory Syncytial VirusPCR Not Detected (NotDetected); Rhinovirus/Enterovirus PCR Not Detected (NotDetected)
[2023-08-12] MEDS ORDERED: OPTIRAY 320 125ml IV ONE (21:50)
[2023-08-12 22:34] LABS: Appearance Urine Clear (Clear); Bilirubin Urine Negative (Negative); Blood Urine 3+ (Negative); Color Urine Yellow; Glucose Urine UA Negative (Negative); Ketones Urine Negative (Negative); Leukocyte Esterase Urine 1+ (Negative); Nitrite Urine Negative (Negative); Protein Urine Negative (Negative); Specific Gravity Urine 1.015 (1.000-1.030); Urobilinogen Urine Negative (Negative); pH Urine 6.5 (4.5-7.5)
--- NOTE | 2023-08-12 22:34 | OB/GYN Consultation ---
Date of Consultation August 12, 2023 Assessment & Plan (1) fever: Working diagnosis at this point is endometritis, given abdominal tenderness and fever. Differential: Breast exam does not show mastitis. Perineum appears to be healing appropriately. Urine sample collected to r/o UTI, pending. No chest pain or difficulty breathing, O2 saturation 97% room air. Initial BP elevated on arrival, now 122/78. Preeclampsia labs normal. Pending ER workup, anticipate will plan to admit to unit for IV antibiotics. Patient is agreeable with this plan. History of Present Illness Reason for Consultation: fever Requesting Physician: Dr Shetty Attending Physician: Dr Shetty History of Present Illness 32yo with spontaneous vaginal delivery at 40 5/7 on 08/07/23. and labor were uncomplicated, 2nd degree perineal laceration repaired with 3-0 Vicryl. Patient presented to ER today with fever/chills. She has had low abdominal pain over the past few days, also the perineal laceration is painful. . No difficulty breathing or chest pain. Eating/drinking ok. Prior to delivery, was diagnosed with sinus infection and has been on antibiotics for this. Allergies Allergy/AdvReac Type Severity Reaction Status Date / Time No Known Allergies Allergy Verified 08/12/23 20:27 Home Medications Medication Instructions Recorded Confirmed Type prenat.vits,vandana,[id number] 1 tab PO DAILY 12/14/22 08/12/23 History citalopram 20 mg tablet 20 mg PO DAILY #30 tabs 06/13/23 08/12/23 Rx levothyroxine 25 mcg tablet 25 mcg PO DAILY #90 tabs 07/07/23 08/12/23 Rx acetaminophen 325 mg capsule 325 mg PO QID PRN Pain 08/12/23 08/12/23 History (Tylenol) ibuprofen 200 mg tablet 200 mg PO Q6H PRN Pain 08/12/23 08/12/23 History Patient History Medical History History of chicken pox Family history of melanoma PCOS (polycystic ovarian syndrome) Anxiety Surgical History S/P wisdom tooth extraction H/O colposcopy with cervical biopsy 2021 Family History Denies family history of Ovarian cancer Prostate cancer Myocardial infarction Breast cancer Colorectal cancer Social History Smoking Status: Never smoker Second Hand Exposure: No; Do You Dip or Chew Tobacco: No; Hx Alcohol Use: No Hx Substance Use: No Preferred Language: Cymro Communication Ability: Effective Wire Saw Operator Required: No Beliefs That Will Affect Care: None marital status: marital status details: Ismael Morillo (32) [phone] Current Living Situation: Family Current Living Situation Comment: Lives at home with , and one daughte. 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 Gen: awake, alert, oriented x 3. No acute distress. Ambulating back from bathroom when I came into room. Breast exam: no masses, no erythema or tenderness, no lymphadenopathy. Abd: soft, mild suprapubic tenderness. Nondistended. Back: epidural site ok, no CVAT : small amount of dark lochia at introitus, perineum healing appropriately - sutures visible, no erythema or swelling. Ext: no edema, no calf tenderness Results & Data Vital Signs (Past 12 Hours) Vital Signs Temp Pulse Pulse Resp BP BP Pulse Ox 08/12/23 22:25 37.0 C 107 H 17 122/78 96 08/12/23 21:05 128 H 19 163/99 H 96 08/12/23 20:30 104 H 08/12/23 20:15 123 H 20 08/12/23 19:56 38.6 C H 124 H 20 148/92 H 97 O2 Del Method 08/12/23 22:25 Room Air 08/12/23 21:05 Room Air 08/12/23 20:30 08/12/23 20:15 08/12/23 19:56 Room Air PG Care Time/CCT Total # of Minutes Spent Total Time Spent with Patient: Total time spent is greater than 50% in coordination of care (as documented) at patient's floor/unit and/or counseling patient: Coding Level of Care Code 68206 OFFICE CONSULT LVL Diagnoses fever O86.4
[2023-08-12 22:42] LABS: Epithelial Cell Urine 0-5 /lpf (0-5); WBC Urine 0-5 /hpf (0-5)
[2023-08-12 22:43] LABS: Bacteria Urine Negative (Negative); Hyaline Casts Urine 0-5 /lpf (0-5)
--- NOTE | 2023-08-12 22:52 | CT Scan Report ---
Exam(s): CTA CHEST IV Amt: 116 ML EXAM: CT Angiography Chest With Intravenous Contrast CLINICAL HISTORY: Reason for exam: PE. TECHNIQUE: Axial computed tomographic angiography images of the chest with intravenous contrast. Automated exposure control was utilized for the study. A dose lowering technique was utilized adhering to the principles of ALARA. MIP reconstructed images were created and reviewed. COMPARISON: No relevant prior studies available. FINDINGS: Pulmonary arteries: Unremarkable. No CT evidence of pulmonary embolism. Aorta: No acute findings. No thoracic aortic aneurysm. Lungs: Unremarkable. No mass. No consolidation. Pleural space: Unremarkable. No significant effusion. No pneumothorax. Heart: Unremarkable. No cardiomegaly. No significant pericardial effusion. No evidence of RV dysfunction. Bones/joints: No acute fracture. No dislocation. Soft tissues: Unremarkable. Lymph nodes: Unremarkable. No enlarged lymph nodes. IMPRESSION: No CT evidence of pulmonary embolism. Electronically signed by: Amos Duncan M.D. 08/12/23 22:51 PM
--- NOTE | 2023-08-12 22:56 | CT Scan Report ---
Exam(s): CT ABDOMEN + PELVIS With Contrast IV Amt: 116 ML EXAM: CT Abdomen and Pelvis With Intravenous Contrast CLINICAL HISTORY: Reason for exam: fever. TECHNIQUE: Axial computed tomography images of the abdomen and pelvis with intravenous contrast. Automated exposure control was utilized for the study. A dose lowering technique was utilized adhering to the principles of ALARA. CONTRAST: Patient received 116 ML of IV contrast COMPARISON: No relevant prior studies available. FINDINGS: Lung bases: Unremarkable. No mass. No consolidation. ABDOMEN: Liver: Unremarkable. No mass. Gallbladder and bile ducts: Unremarkable. No calcified stones. No ductal dilation. Pancreas: Unremarkable. No mass. No ductal dilation. Spleen: Unremarkable. No splenomegaly. Adrenals: Unremarkable. No mass. Kidneys and ureters: Unremarkable. No solid mass. No hydronephrosis. Stomach and bowel: Unremarkable. No obstruction. No mucosal thickening. PELVIS: Appendix: No findings to suggest acute appendicitis. Bladder: Unremarkable. No mass. Reproductive: Diffusely enlarged uterus. Question if patient is recently . ABDOMEN and PELVIS: Intraperitoneal space: Unremarkable. No free air. No significant fluid collection. Bones/joints: No acute fracture. No dislocation. Soft tissues: Unremarkable. Vasculature: Unremarkable. No abdominal aortic aneurysm. Lymph nodes: Unremarkable. No enlarged lymph nodes. IMPRESSION: No acute abdominal or pelvic process. Diffusely enlarged uterus. Question if patient is recently . Electronically signed by: Amos Duncan M.D. 08/12/23 22:55 PM
--- NOTE | 2023-08-12 23:12 | History & Physical Report ---
Date of Service August 12, 2023 Assessment & Plan (1) endometritis: Plan: Admit for broad spectrum antibiotics. Will plan for triple therapy - amp/gent/clinda. Patient agreeable with plan. Discussed ok for with antibiotics. Will plan for at least 24h IV antibiotics, and anticipate 24-48h treatment - until afebrile and fundal tenderness improves. History of Present Illness Chief Complaint: fever Primary Care Provider: Jennifer Boss MD 32yo with spontaneous vaginal delivery at 40 5/7 on 08/07/23. and labor were uncomplicated, 2nd degree perineal laceration repaired with 3-0 Vicryl. Patient presented to ER today with fever/chills. She has had low abdominal pain over the past few days, also the perineal laceration is painful. . No difficulty breathing or chest pain. Eating/drinking ok. Prior to delivery, was diagnosed with sinus infection and has been on antibiotics for this. ER workup showing low abdominal tenderness, mild tachycardia, temp 38.6 on arrival, otherwise normal exam/diagnostics. Allergies Allergy/AdvReac Type Severity Reaction Status Date / Time No Known Allergies Allergy Verified 08/12/23 20:27 Home Medications Medication Instructions Recorded Confirmed Type prenat.vits,vandana,[id number] 1 tab PO DAILY 12/14/22 08/12/23 History citalopram 20 mg tablet 20 mg PO DAILY #30 tabs 06/13/23 08/12/23 Rx levothyroxine 25 mcg tablet 25 mcg PO DAILY #90 tabs 07/07/23 08/12/23 Rx acetaminophen 325 mg capsule 325 mg PO QID PRN Pain 08/12/23 08/12/23 History (Tylenol) ibuprofen 200 mg tablet 200 mg PO Q6H PRN Pain 08/12/23 08/12/23 History Patient History Medical History History of chicken pox Family history of melanoma PCOS (polycystic ovarian syndrome) Anxiety Surgical History S/P wisdom tooth extraction H/O colposcopy with cervical biopsy 2021 Family History Denies family history of Ovarian cancer Prostate cancer Myocardial infarction Breast cancer Colorectal cancer Social History Smoking Status: Never smoker Second Hand Exposure: No; Do You Dip or Chew Tobacco: No; Hx Alcohol Use: No Hx Substance Use: No Preferred Language: Frisian Communication Ability: Effective Adolescent Psychiatrist Required: No Beliefs That Will Affect Care: None marital status: marital status details: Ismael Morillo (32) [phone] Current Living Situation: Family Current Living Situation Comment: Lives at home with , and one daughte. current occupational status: employed current occupation: [employer] How many Children do You have: 1 Feels Safe at Home: Yes Childhood Exposure to Second-Hand Smoke: Yes Diet: regular caffeine: Yes Dental Care, Regularly: Yes Seatbelt Use: always Sunscreen Use: Yes Physical Exam Physical Exam: ER nurse present for exam. Gen: awake, alert, oriented x 3. No acute distress. Ambulating back from bathroom when I came into room. Breast exam: no masses, no erythema or tenderness, no lymphadenopathy. Abd: soft, mild suprapubic tenderness. Nondistended. Back: epidural site ok, no CVAT : small amount of dark lochia at introitus, perineum healing appropriately - sutures visible, no erythema or swelling. Ext: no edema, no calf tenderness Results & Data Vital Signs (Past 12 Hours) Vital Signs Temp Pulse Pulse Resp BP BP Pulse Ox 08/12/23 23:00 107 H 16 130/86 96 08/12/23 22:25 37.0 C 107 H 17 122/78 96 08/12/23 21:05 128 H 19 163/99 H 96 08/12/23 20:30 104 H 08/12/23 20:15 123 H 20 08/12/23 19:56 38.6 C H 124 H 20 148/92 H 97 O2 Del Method 08/12/23 23:00 Room Air 08/12/23 22:25 Room Air 08/12/23 21:05 Room Air 08/12/23 20:30 08/12/23 20:15 08/12/23 19:56 Room Air Coding Level of Care Code 12240 INT INP/OBS CARE 2/55MIN Diagnoses endometritis O86.12
[2023-08-13] MEDS ORDERED: oxyCODONE/ACETAMINOPHEN 5mg/325mg TAB PO PRN (00:10)
[2023-08-13] MEDS ORDERED: bisacodyL 10 MG SUPP PR PRN (00:10)
[2023-08-13] MEDS ORDERED: BENZOCAINE 20% SPRY 85 APPLN/85 GM CAN EXT PRN (00:10)
[2023-08-13] MEDS ORDERED: AMPICILLIN SOD 1 GM VIAL IV SCH (00:10)
[2023-08-13] MEDS ORDERED: HYDROCORTISONE ACETATE 25 MG SUPP PR PRN (00:10)
[2023-08-13] MEDS ORDERED: GENTAMICIN CONSULT ACTIVE PRN (00:10)
[2023-08-13] MEDS: AMPICILLIN 2,000 MG in SODIUM CHLOR 0.9% MINI-B 100 ML IV SCH ×4 (04:16→21:35)
[2023-08-13] MEDS: ACETAMINOPHEN 325 MG TAB PO PRN ×3 (05:48→20:01)
[2023-08-13] MEDS: CLINDAMYCIN/D5W 900 MG/50 ML BAG IV SCH ×3 (05:49→22:17)
[2023-08-13] MEDS ORDERED: GENTAMICIN SULFATE 130 MG in DEXTROSE 5% 100 ML IV SCH (06:00)
[2023-08-13 06:33] LABS: Hematocrit (blood only) 31.2 % (37.0-47.0); Hemoglobin 10.5 g/dl (12.0-16.0); Mean Corpuscular Hemoglobin 29.4 pg (25.0-34.0); Mean Corpuscular Hgb Conc 33.7 g/dL (32.0-36.0); Mean Corpuscular Volume 87.4 fL (80.0-100.0); Mean Platelet Volume 11.6 fL (9.4-12.4); Platelet Count 140 K/uL (130-400); RDW Coefficient of Variation 13.9 % (11.5-14.5); Red Blood Count 3.57 M/uL (4.20-5.40); White Blood Count 11.91 K/ul (4.8-10.8)
[2023-08-13] MEDS: LEVOTHYROXINE SODIUM 25 MCG TABLET PO SCH (06:37)
[2023-08-13] MEDS: IBUPROFEN 600 MG TAB PO PRN ×3 (06:44→18:41)
--- NOTE | 2023-08-13 07:22 | XRay Report ---
XR chest 1V portable HISTORY: 32 years-old Female Sepsis acute shortness of breath with sepsis COMPARISON: CTA of the chest of same day TECHNIQUE: AP view of the chest FINDINGS: The cardiomediastinal and hilar silhouettes are within normal limits. No pneumothorax, pleural effusi on or airspace consolidation. The bones of the chest appear grossly intact. IMPRESSION: No acute process. ACT 112: Negative or not required by law. The above report was generated using voice recognition software. It may contain grammatical, syntax o r spelling errors. Electronically signed by: Main Calvin M.D. 08/13/2023 7:20 AM
--- NOTE | 2023-08-13 08:01 | Obstetrical Progress Note ---
Date of Service August 13, 2023 Assessment & Plan (1) endometritis: Plan: Will plan to continue antibiotics for 24 h, after that point if afebrile and improved symptoms anticipate DC home tomorrow. She is agreeable with this plan. Admission and Anticipated Discharge Date Admission Date: August 12, 2023 Subjective Patient is awake and in room. Has not had any fever/chills symptoms since transferring from ER. Eating/drinking ok. Urinating ok. ok - concerned about cracked nipples, using lanolin. Rates pelvic pain 2-3/10. Physical Exam Physical Exam: Gen: AAOx3 NAD , no breast erythema. Abd soft - not able to really assess for fundal tenderness this AM d/t active No LE edema Results & Data Vital Signs (Past 12 Hours) Vital Signs Temp Pulse Pulse Resp BP BP Pulse Ox 08/13/23 04:14 36.5 C 100 H 16 114/78 97 08/13/23 00:14 36.9 C 116 H 16 114/75 97 08/12/23 23:39 107 H 16 130/86 96 08/12/23 23:00 107 H 16 130/86 96 08/12/23 22:25 37.0 C 107 H 17 122/78 96 08/12/23 21:05 128 H 19 163/99 H 96 08/12/23 20:30 104 H 08/12/23 20:15 123 H 20 O2 Del Method 08/13/23 04:14 Room Air 08/13/23 00:14 Room Air 08/12/23 23:39 Room Air 08/12/23 23:00 Room Air 08/12/23 22:25 Room Air 08/12/23 21:05 Room Air 08/12/23 20:30 08/12/23 20:15 PG Care Time/CCT Total # of Minutes Spent Total Time Spent with Patient: Total time spent is greater than 50% in coordination of care (as documented) at patient's floor/unit and/or counseling patient: Coding Level of Care Code None Diagnoses endometritis O86.12
[2023-08-13] MEDS: DOCUSATE SODIUM 100 MG CAP PO SCH ×2 (08:36→20:01)
[2023-08-13] MEDS: CITALOPRAM 20 MG TAB PO SCH (08:36)
[2023-08-13] MEDS: PRENATAL VITAMIN 1 TAB PO SCH (08:36)
--- NOTE | 2023-08-13 09:51 | Pharmacy Report ---
Pharmacy PK ABX Note - Date of Service August 13, 2023 - Assessment and Plan Assessment * 32 year old F receiving ampicillin, gentamicin, and clindamycin for treatment of endometritis. * Pertinent microbiologic data includes: blood cultures pending * Both extended interval dosing and conventional dosing have been studied in intrapartum and patients. Currently, there is more data to support the use of extended interval dosing in the setting. * Dose: 5 mg/kg IV q24h dose based on *actual* body weight * Gentamicin levels * Do not need to be monitored in patients receiving gentamicin 5 mg/kg q24h for short course therapy (<=72 hours) as long as they have normal renal function. * If therapy continues for > 72 hours, obtain a trough level 30 minutes prior to next dose * Target trough < 1 mcg/mL Plan Gentamicin * Switch to extended interval dosing * Gentamicin 572 mg IV q24h * Trough level ordered for: 08/14 @ 1330 Pharmacy will continue to follow and will adjust dose/frequency as necessary. Thank you. Pharmacy has transitioned to AUC monitoring for vancomycin. AUC/REY is the preferred PK/PD target and is associated with decreased risk of nephrotoxicity compared to traditional trough targets.
--- NOTE | 2023-08-13 13:22 | Electrocardiogram Report ---
Test Reason : Blood Pressure : / mmHG Vent. Rate : 111 BPM Atrial Rate : 111 BPM P-R Int : 150 ms QRS Dur : 066 ms QT Int : 308 ms P-R-T Axes : 062 053 038 degrees QTc Int : 418 ms Sinus tachycardia Low voltage QRS Borderline ECG No previous ECGs available Confirmed by Ag Mackay ([id number]) on 08/13/2023 1:22:18 PM Referred By: Martina Jordan Confirmed By:Ag Mackay
[2023-08-13] MEDS ORDERED: GENTAMICIN TROUGH SCH (13:30)
[2023-08-13] MEDS ORDERED: GENTAMICIN SULFATE IV SCH (14:00)
[2023-08-13] MEDS ORDERED: DEXTROSE 5% IV SCH (14:00)
[2023-08-13] MEDS ORDERED: bisacodyL 5 MG TABEC PO SCH (20:00)
--- NOTE | 2023-08-13 21:28 | Obstetrical Progress Note ---
Date of Service August 13, 2023 Assessment & Plan Admission and Anticipated Discharge Date Admission Date: August 12, 2023 Subjective Evening rounds. Patient awake, sitting up. Eating dinner. Feels some GI discomfort, but suprapubic pain has improved. No pain with urination. Perineum uncomfortable post-delivery, but not severe. ok. No feelings of fever/chills since she was in the ER last night. Pulse has improved, has remained afebrile since ER. On exam, abdomen soft, nontender, nondistended. No LE edema, calf tenderness. Will plan to stop antibiotics at 24h, watch overnight and tomorrow morning for return of symptoms or fever - if doing well, will anticipate DC home tomorrow. Results & Data Vital Signs (Past 12 Hours) Vital Signs Temp Pulse Resp BP Pulse Ox O2 Del Method 08/13/23 16:20 36.9 C 97 H 16 120/78 96 Room Air 08/13/23 11:30 36.8 C 92 H 14 115/71 96 Room Air PG Care Time/CCT Total # of Minutes Spent Total Time Spent with Patient: Total time spent is greater than 50% in coordination of care (as documented) at patient's floor/unit and/or counseling patient: Coding Level of Care Code None
[2023-08-13] MEDS ORDERED: CLINDAMYCIN/D5W 900 MG/50 ML BAG IV ONE (22:04)
[2023-08-14] MEDS: LEVOTHYROXINE SODIUM 25 MCG TABLET PO SCH (06:06)
[2023-08-14 06:36] LABS: Creatinine Clr Calc Pharmacy 196.7 ml/min; Est GFR (African American) 142.8 ml/min; Est GFR (Non-African American) 123.2 ml/min
[2023-08-14] MEDS: ACETAMINOPHEN 325 MG TAB PO PRN (06:41)
--- NOTE | 2023-08-14 07:25 | Obstetrical Progress Note ---
Date of Service August 14, 2023 Assessment & Plan (1) endometritis: Plan: Discussed with patient that will monitor for fever until after lunchtime today, if doing well at that point, ok for DC home. Reviewed reasons to call office - if fever, worsening pain, other emergent symptoms. Rx probiotic for today before she leaves if available in pharmacy. Discussed warm compresses for vulvar boil. Admission and Anticipated Discharge Date Admission Date: August 12, 2023 Subjective Patient awoken this morning, has been afebrile since ER. Reporting some GI discomfort - is able to eat - discussed probiotics, would like to take one now. ok. Feels like there is a small lump on labia. Has headache off and on - treated with tylenol/ibuprofen. Physical Exam Physical Exam: Abdomen soft, NTTP, no fundal tenderness Left labia majora with 1cm pointed lesion, not draining at this point but appears like it will. No surrounding erythema. Results & Data Vital Signs (Past 12 Hours) Vital Signs Temp Pulse Resp BP Pulse Ox O2 Del Method 08/14/23 03:50 36.8 C 74 20 124/75 99 Room Air 08/14/23 00:15 36.8 C 74 20 118/76 96 Room Air 08/13/23 19:40 37 C 91 H 20 118/81 96 Room Air PG Care Time/CCT Total # of Minutes Spent Total Time Spent with Patient: Total time spent is greater than 50% in coordination of care (as documented) at patient's floor/unit and/or counseling patient: Coding Level of Care Code 35305 SUB INP/OBS CARE 08/03MIN Diagnoses endometritis O86.12
[2023-08-14] MEDS: PRENATAL VITAMIN 1 TAB PO SCH (08:12)
[2023-08-14] MEDS: CITALOPRAM 20 MG TAB PO SCH (08:12)
[2023-08-14] MEDS: DOCUSATE SODIUM 100 MG CAP PO SCH (08:12)
[2023-08-14] MEDS ORDERED: ADVANCED PROBIOTIC 1250 MG CAPSULE PO SCH (09:00)
[2023-08-14] MEDS: IBUPROFEN 600 MG TAB PO PRN (10:45)
--- NOTE | 2023-08-15 17:16 | Discharge Summary ---
Date of Service August 15, 2023 Admission HPI Per Admitting Provider 32yo with spontaneous vaginal delivery at 40 5/7 on 08/07/23. and labor were uncomplicated, 2nd degree perineal laceration repaired with 3-0 Vicryl. Patient presented to ER today with fever/chills. She has had low abdominal pain over the past few days, also the perineal laceration is painful. . No difficulty breathing or chest pain. Eating/drinking ok. Prior to delivery, was diagnosed with sinus infection and has been on antibiotics for this. ER workup showing low abdominal tenderness, mild tachycardia, temp 38.6 on arrival, otherwise normal exam/diagnostics. Discharge Data Consultations 08/12/23 22:49 ED Decision to Admit Stat 08/12/23 23:27 Consult Obstetrics Stat Hospital Course (1) endometritis: Admitted for IV antibiotics - treated with amp/gent/clinda x 24h, afebrile during that time and symptoms improved, monitored overnight and through the next morning for return of fever or symptoms. Discharged home to followup in office for visit. No PO Rx antibiotics indicated. Coding Level of Care Code None Diagnoses endometritis O86.12
== END 2023-08-14 12:52 | disposition home or self-care (01) | DRG 776 ==
LOC: ED 19:44 → 4E1 22:49
DX: O86.4 Pyrexia of unknown origin following delivery; O86.12 Endometritis following delivery